=== PATIENT | male | born 1985 | race American Indian/Alaskan Native ===

== ENCOUNTER 2016-09-29 11:37 | Inpatient (IN) | payer OTHER ==
[2016-09-29] MEDS ORDERED: HYDROGEN PEROXIDE ONE (12:53)
[2016-09-29 13:17] LABS: Hematocrit 40.9 % (35.5-45.6); Hemoglobin 13.3 gm/dl (11.8-15.2); Mean Corpuscular HGB Conc 32 % (32-34); Mean Corpuscular Hemoglobin 27 pg (28-32); Mean Corpuscular Volume 83 fl (84-94); Platelet Count 188 K/mm3 (140-440); Red Blood Count 4.93 M/mm3 (3.65-5.03); Red Cell Distribution Width 17.3 % (13.2-15.2)
[2016-09-29 13:23] LABS: Alanine Aminotransferase 43 units/L (7-56); Albumin 2.9 g/dL (3.9-5); Albumin/Globulin Ratio 0.8 %; Alkaline Phosphatase 234 units/L (35-129); Anion Gap 19 mmol/L; Blood Urea Nitrogen 7 mg/dL (9-20); Calcium 8.3 mg/dL (8.4-10.2); Carbon Dioxide 23 mmol/L (22-30); Chloride 92.3 mmol/L (98-107); Glucose 61 mg/dL (75-100); Lipase 208 units/L (13-60); Potassium 3.7 mmol/L (3.6-5.0); Sodium 131 mmol/L (137-145); Total Protein 6.4 g/dL (6.3-8.2)
[2016-09-29 13:29] LABS: Bilirubin,Urine NEG (Negative); Blood,Urine NEG (Negative); Ketones,Urine 80 mg/dL (Negative); Leukocyte Esterase,Urine NEG (Negative); Mucus,Urine 1+ /HPF; Nitrite,Urine NEG (Negative); Urobilinogen,Urine < 2.0 mg/dL (<2.0)
[2016-09-29] MEDS ORDERED: NACL 0.9% 1000 ML 1,000 ML IV ONE (13:35)
[2016-09-29] MEDS ORDERED: MORPHINE IV ONE (13:35)
--- NOTE | 2016-09-29 13:54 | XRay Report ---
Flat and upright abdomen: History: Abdominal pain. Findings: No free intraperitoneal air. No bowel distention or wall thickening. No radiopaque calculus or abnormal calcification. Impression: Essentially negative abdomen.
--- NOTE | 2016-09-29 14:12 | Admit Criteria Form ---
Admission Criteria Documentation: GALLBLADDER OR BILE DUCT INFLAMMATION OR STONE Clinical Indications for Admission to Inpatient Care ( Place 'X' for any and all applicable criteria): Admission is indicated for patients with ANY ONE of the following(1)(2)(3)(4)(5) : [X]I. Acute cholecystitis as indicated by ALL of the following: [X]a) Right upper quadrant pain, mass, or tenderness [ ]b) Systemic signs of inflammation indicated by ANY ONE of the following: [ ]i) Fever [ ]ii) C-reactive protein level greater than 10 mg/L (95 nmol/L) [ ]iii) White blood cell count greater than 10,000/mm3 (10 x109/L) or less than 4000/mm3 (4 x109/L) [X]II. Inpatient admission required rather than observation care (Also use Gallbladder or Bile Duct Inflammation or Stone: Observation Care as appropriate) because of ANY ONE of the following: [ ]a) Common bile duct obstruction diagnosed [ ]b) Vomiting that is severe or persistent []c) Severe pain requiring acute inpatient management [ ]d) Signs of intestinal obstruction or peritonitis [A] [ ]e) Severe electrolyte abnormalities requiring inpatient care [ ]f) Absent bowel sounds with complete ileus(8) [ ]g) Hemodynamic instability [ ]h) High fever or infection requiring inpatient admission as indicated by ANY ONE of the following (9): [ ]1) Appropriate outpatient or observation care antimicrobial Treatment. unavailable, not effective, or not feasible [ ]2) Temperature greater than 104.9 degrees F (40.5 degrees C) (oral) [ ]3) Temperature greater than 103.1 degrees F (39.5 degrees C) (oral) or less than 96.8 degrees F (36 degrees C) (rectal) that does not respond to all emergency treatment measures [ ]4) Documented bacteremia [ ]i) IV fluid to replace significant ongoing losses (greater than 3 L/m2 per day) [ ]j) Percutaneous or open drainage (eg, abscess, biliary tract) procedures [ ]k) Immediate inpatient surgery [ ]l) Other condition, treatment or monitoring requiring inpatient admission [ ]III. Acute cholangitis as indicated by ALL of the following(9)(10): [ ]a) Systemic signs of inflammation indicated by ANY ONE of the following: [ ]i) Fever [ ]ii) C-reactive protein level greater than 10 mg/L (95 nmol /L) [ ]iii) White blood cell count greater than 10,000/mm3 (10 x109/L) or less than 4000/mm3 (4 x109/L) [ ]b) Evidence of common bile duct disease indicated by ANY ONE of the following: [ ]i) Total serum bilirubin level greater than or equal to 2 mg/dL (34 micromoles/L) [ ]ii) Liver function test (alkaline phosphatase (ALP), r- glutamyltransferase (GGT), aspartate aminotransferase (AST), or alanine aminotransferase (ALT)) greater than 1.5 times the upper limit of normal[B] [ ]iii) Hepatobiliary imaging showing biliary dilatation or evidence of etiology (eg, stricture, stone, previously placed stent) Extended stay beyond goal length of stay may be needed for (1)(2)): [ ]a) Bacteremia or Hemodynamic instability [ ]b) Cholecystectomy [ ]c) Other surgical procedure(24) [ ]d) Percutaneous or endoscopic ultrasound-guided cholecystostomy The original [facility] content created by [facility] has been revised. The portions of the content which have been revised are identified through the use of italic text or in bold, and [facility] has neither reviewed nor approved the modified material. All other unmodified content is copyright [facility]. Please see references footnoted in the original [facility] edition 2016 Admission Criteria Met: Yes
[2016-09-29 14:13] LABS: Basophils % (Manual) 0 % (0.0-1.8); Blastocytes % (Manual) 0 %
[2016-09-29 14:14] LABS: Diff Status Complete; RBC Morphology Normal
--- NOTE | 2016-09-29 14:33 | Cat Scan Report ---
CT HEAD WITHOUT CONTRAST INDICATION: Altered mental status. COMPARISON: None similar. FINDINGS: Noncontrast head CT demonstrates symmetric ventricles and sulci without acute or recent infarct, hemorrhage, mass effect or midline shift. No abnormal extra-axial fluid collections. Posterior fossa structures and basilar cisterns appear within normal limits. Symmetric imaged eye globes. Clear paranasal sinuses and mastoid air cells. Intact calvarium. Normal overlying scalp soft tissues. CONCLUSION: No acute intracranial CT abnormality, as described. Thank you for the opportunity to participate in this patient's care.
--- NOTE | 2016-09-29 14:37 | Cat Scan Report ---
CT scan of abdomen and pelvis without IV contrast: History: Abdominal pain. Findings: Airspace opacities right lower lobe suggestive of pneumonitis. No pleural effusion or pericardial effusion. Fatty liver. Thick wall gallbladder with pericholecystic fluid. Normal pancreas. Normal spleen. Normal adrenals and kidneys and bladder. No free intraperitoneal fluid. No evidence of adenopathy. Grossly bowel gas pattern unremarkable. No evidence of appendicitis or diverticulitis. Impression: Thickwalled gallbladder with pericholecystic fluid. Sonographic correlation to rule out cholecystitis. Fatty liver. Airspace opacities right lower lobe suggestive of pneumonitis.
[2016-09-29] MEDS ORDERED: HYDROGEN PEROXIDE TP ONE (14:59)
--- NOTE | 2016-09-29 15:38 | Ultrasound Report ---
Sonogram right upper quadrant: History: Abdominal pain, rule out cholecystitis. Findings: Normal aorta and inferior vena cava. Gallbladder wall thickness 6.7 mm. Pericholecystic fluid. Multiple calculi in gallbladder. Positive Nova sign. No intrahepatic or extrahepatic duct dilatation. Common bile duct 4 mm. Right kidney 10.9 x 5.3 x 5.3 cm. Cortical thickness 1.4 cm. No mass. No hydronephrosis. Pancreas not visualized. Impression: Finding suggestive acute cholecystitis.
--- NOTE | 2016-09-29 15:55 | Emergency Department Report ---
HPI - General Chief Complaint: Abdominal Pain Time Seen by Provider: 09/29/16 12:00 - HPI HPI: This is a 31-year-old male who presents emergency Department with complaint of a 3 to four-day history of upper abdominal pain, nausea and vomiting. He has a history of asthma and HIV. The patient says he has been off of his HIV medications for about a week or so. He has not taken anything for pain or his symptoms prior to presentation. No recent travel or sick contacts at home. He denies any past surgical history. He denies any tobacco abuse, illicit drug use or any alcohol abuse. He denies any fever, chest pain, shortness of breath , dysuria, discharge. ED Past Medical Hx - Past Medical History Hx Asthma: Yes Hx HIV: Yes - Social History Smoking Status: Never Smoker Substance Use Type: Alcohol - Medications Home Medications: Home Medications Medication Instructions Recorded Confirmed Last Taken Type Cetirizine HCl [Allergy Relief] 10 mg PO DAILY #30 tablet 01/25/14 Unknown Rx ED Review of Systems ROS: Stated complaint: N/V / ABD PAIN Other details as noted in HPI Comment: All other systems reviewed and negative Constitutional: denies: chills, fever Eyes: denies: eye pain, eye discharge, vision change ENT: denies: ear pain, throat pain Respiratory: denies: cough, shortness of breath, wheezing Cardiovascular: denies: chest pain, palpitations Gastrointestinal: abdominal pain, nausea, vomiting Genitourinary: denies: urgency, dysuria Musculoskeletal: denies: back pain, joint swelling, arthralgia Skin: denies: rash, lesions Neurological: denies: headache, weakness, paresthesias Physical Exam - Physical Exam Vital Signs: Vital Signs 09/29/16 11:49 Pulse Rate 109 H Respiratory 16 Rate Blood Pressure 111/81 O2 Sat by Pulse 100 Oximetry Physical Exam: GENERAL: The patient is well-developed well-nourished. HEENT: Normocephalic. Atraumatic. Extraocular motions are intact. Patient has moist mucous membranes. Pupils equal reactive to light bilaterally. NECK: Supple. Trachea is midline. CHEST/LUNGS: Clear to auscultation. There is no respiratory distress noted. HEART/CARDIOVASCULAR: Regular. There is no tachycardia. There is no gallop rub or murmur. ABDOMEN: Abdomen is soft. There is tenderness palpation to the right upper quadrant epigastrium. There is mild guarding but no rebound tenderness. Patient has normal bowel sounds. There is no abdominal distention. SKIN: Skin is warm and dry. NEURO: The patient is awake, alert. The patient is cooperative. The patient has no focal neurologic deficits. The patient has normal speech. MUSCULOSKELETAL: There is no tenderness or deformity. There is no limitation range of motion. There is no evidence of acute injury. ED Course Vital Signs 09/29/16 11:49 Pulse Rate 109 H Respiratory 16 Rate Blood Pressure 111/81 O2 Sat by Pulse 100 Oximetry - Consultations Consultation #1: I spoke to the general surgeon on-call, Dr. Way, who has recommended the patient be placed on Levaquin and admitted to the hospitalist service and he will consult on the patient as he says he will most likely not take the patient to the OR for a few days. 09/29/16 16:02 ED Medical Decision Making - Lab Data Result diagrams: 09/29/16 11:53 09/29/16 11:53 - Radiology Data Radiology results: report reviewed, image reviewed interpreted by me: Abdominal x-ray shows some nonspecific nonobstructive bowel gas. CT of the head does not show any acute process including no hemorrhage, mass, shift, diffuse edema or skull fracture. CT of the abdomen and pelvis without contrast shows thick-walled gallbladder with pericholecystic fluid. Sonographic correlation to rule out cholecystitis. Fatty liver. Airspace opacities right lower lobe suggestive of pneumonitis. Right upper quadrant ultrasound shows findings suggestive of acute cholecystitis. Gall bladder wall thickness 6.7 mm. Pericholecystic fluid. Multiple calculi in the gallbladder. Positive Nova sign. No intrahepatic or extra ductal dilation. Common bile duct 4 mm. - Medical Decision Making 31-year-old male presents with a few days of abdominal pain, nausea, vomiting. Abdominal x-ray is unremarkable. Labs show elevation in lipase, AST, alkaline phosphatase. CT of the abdomen and pelvis was done that showed concern for cholecystitis but recommended ultrasound. Ultrasound confirms acute cholecystitis. Spoke with general surgery who is aware and asked to be placed as consultation and recommends IV antibiotics. The patient has been accepted for admission by the hospitalist, Dr. Hamm. - Differential Diagnosis cholecystitis, pancreatitis, colitis, diverticulitis Critical Care Time: No Critical care attestation.: If time is entered above; I have spent that time in minutes in the direct care of this critically ill patient, excluding procedure time. ED Disposition Clinical Impression: Cholecystitis Abdominal pain Qualifiers: Abdominal location: upper abdomen, unspecified Qualified Code(s): R10.10 - Upper abdominal pain, unspecified Nausea & vomiting Qualifiers: Vomiting type: unspecified Vomiting Intractability: non-intractable Qualified Code(s): R11.2 - Nausea with vomiting, unspecified Disposition: 09 OP ADMIT IP TO THIS HOSP Is pt being admited?: Yes Condition: Stable Referrals: PRIMARY CARE,MD [Primary Care Provider] - 3-5 Days Time of Disposition: 16:02
[2016-09-29] MEDS ORDERED: LEVAQUIN 750MG/150ML 750 MG/150 ML BAG IV ONE (15:58)
[2016-09-29] MEDS ORDERED: DULCOLAX PR PRN (16:43)
[2016-09-29] MEDS ORDERED: MORPHINE IV PRN (16:43)
[2016-09-29] MEDS ORDERED: ZOFRAN IV PRN (16:43)
[2016-09-29] MEDS ORDERED: D5NS 1,000 ML IV SCH (17:00)
--- NOTE | 2016-09-29 17:49 | History and Physical Report ---
History of Present Illness Date of examination: 09/29/16 Chief complaint: Abdominal pain vomiting and diarrhea for 1 week History of present illness: This is a 31-year-old male who presents emergency Department with complaints history of upper abdominal pain, nausea and vomiting and diarrhea for the past 1 week. He also states that he has not been feeling well for the past 2 months and has had a weight loss of about 60 pounds in the past 6 months. He has a history of asthma and HIV. The patient says he has been off of his HIV medications and states that the medications have been impounded by his aunt. He has not taken anything for pain or his symptoms prior to presentation. No recent travel or sick contacts at home. He denies any past surgical history. He denies any tobacco abuse, illicit drug use or any alcohol abuse. He denies any fever, chest pain, shortness of breath, dysuria, discharge. Upon further workup patient was diagnosed with acute cholecystitis and right lower lobe pneumonitis and he is being admitted for further management Past History Past Medical History: HIV/AIDS Past Surgical History: No surgical history Social history: no significant social history Family history: no significant family history Medications and Allergies Allergies Allergy/AdvReac Type Severity Reaction Status Date / Time No Known Allergies Allergy Verified 01/25/14 20:34 Home Medications Medication Instructions Recorded Confirmed Last Taken Type No Known Home Medications [No 09/29/16 09/29/16 Unknown History Reported Home Medications] Active Meds: Active Medications Bisacodyl (Dulcolax) 10 mg [place] QDAY PRN PRN Reason: Constipation unrelieved by MOM Heparin Sodium (Porcine) (Heparin) 5,000 unit SUB-Q Q8HR JOSE ANTONIO Dextrose/Sodium Chloride (D5ns) 1,000 mls @ 100 mls/hr IV DIRECT JOSE ANTONIO Levofloxacin/Dextrose (Levaquin 750mg/150ml) 750 mg in 150 mls @ 100 mls/hr IV Q24HR JOSE ANTONIO PRN Reason: Protocol Morphine Sulfate (Morphine) 2 mg IV Q4H PRN PRN Reason: Pain, Moderate (4-6) Ondansetron HCl (Zofran) 4 mg IV Q8H PRN PRN Reason: N/V unrelieved by Reglan Review of Systems All systems: negative (12 point review of systems is negative except as stated above in the history of present illness) Exam - Constitutional Vitals: Temp Pulse Resp BP Pulse Ox 104 H 20 100/67 96 09/29/16 16:20 09/29/16 16:32 09/29/16 16:20 09/29/16 16:32 General appearance: Present: no acute distress - EENT Eyes: Present: PERRL, EOM intact ENT: hearing intact, clear oral mucosa, no thrush - Neck Neck: Present: supple, normal ROM. Absent: masses or JVD - Respiratory Respiratory effort: normal Respiratory: bilateral: CTA - Cardiovascular Rhythm: regular Heart Sounds: Present: S1 & S2 - Extremities Extremities: No edema - Abdominal General gastrointestinal: Present: soft, tender (moderate tenderness in the right upper quadrant and right mid abdomen), non-distended. Absent: hepatomegaly, splenomegaly Male genitourinary: Present: deferred - Rectal Rectal Exam: deferred - Integumentary Integumentary: Present: erythema (there is perioral and nivia nasal facial erythema) - Musculoskeletal Musculoskeletal: strength equal bilaterally - Psychiatric Psychiatric: appropriate mood/affect - Neurologic Neurologic: no focal deficits, moves all extremities Results - Labs CBC & Chem 7: 09/29/16 11:53 09/29/16 11:53 Labs: Abnormal lab results 09/29/16 09/29/16 Range/Units 11:53 11:53 WBC 2.0 L (4.5-11.0) K/mm3 MCV 83 L (84-94) fl MCH 27 L (28-32) pg RDW 17.3 H (13.2-15.2) % Seg Neuts % (Manual) 74.0 H (40.0-70.0) % Lymphocytes % (Manual) 7.0 L (13.4-35.0) % Seg Neutrophils # Man 1.5 L (1.8-7.7) K/mm3 Lymphocytes # (Manual) 0.1 L (1.2-5.4) K/mm3 Sodium 131 L (137-145) mmol/L Chloride 92.3 L (98-107) mmol/L BUN 7 L (9-20) mg/dL Creatinine 0.4 L (0.8-1.5) mg/dL Glucose 61 L (75-100) mg/dL Calcium 8.3 L (8.4-10.2) mg/dL AST 133 H (5-40) units/L Alkaline Phosphatase 234 H (35-129) units/L Albumin 2.9 L (3.9-5) g/dL Lipase 208 H (13-60) units/L Assessment and Plan - Patient Problems (1) Acute cholecystitis Current Visit: Yes Status: Acute Plan to address problem: Keep the patient nothing by mouth ED physician contacted Dr. Way At this time patient is refusing surgery Pain control Intravenous antibiotics IV fluids (2) Right lower lobe pneumonia Current Visit: Yes Status: Acute Qualifiers: Pneumonia type: P Aspiration pneumonia type: A Plan to address problem: Blood cultures Intravenous antibiotics Oxygen supplement IV hydration (3) HIV (human immunodeficiency virus infection) Current Visit: Yes Status: Acute Plan to address problem: His home medication list is not available He was told to contact his family about the medications Patient however states that his aunt has stopped all his medications (4) Leukopenia Current Visit: Yes Status: Acute Qualifiers: Leukopenia type: L Neutropenia type: N Plan to address problem: Most likely HIV related (5) Hyponatremia Current Visit: Yes Status: Acute Plan to address problem: Continue IV fluids and monitor serum electrolytes Check urine spot electrolytes Total time spent 40 minutes
--- NOTE | 2016-09-29 21:41 | Progress Note ---
Assessment and Plan Full consult dictated. 31 y/o male +HIV & pneumonitis. c/o RUQ abd pain. CT & US consistent with acute cholecystitis. states feeling better now. Abd soft. mild RUQ tenderness low wbc. high lipase imp immunocompromised HIV pt (advertently not taking meds, also possibly homeless "staying in hotel" r/o acute cholecyistitis. rec. keep NPO IV Levaquin ID eval to re-start HIV meds and boost immune system. hold sub q Heparin in case we need to proceed with emergency surg would prefer to attempt IV antibiotics and see if pt clinically improves. then we could proceed with semi-elective cholecystectomy in near future once acute inflammation and possible pancreatitis subsides. will follow. Selected Entries 09/29/16 20:00 Pulse Rate 103 H Respiratory 17 Rate Blood Pressure 100/67 Laboratory Tests 09/29/16 09/29/16 11:53 11:53 WBC 2.0 L Hgb 13.3 Hct 40.9 Plt Count 188 Sodium 131 L Potassium 3.7 Chloride 92.3 L Carbon Dioxide 23 BUN 7 L Creatinine 0.4 L Glucose 61 L Total Bilirubin 0.40 AST 133 H ALT 43 Alkaline Phosphatase 234 H Lipase 208 H Objective Vital Signs - 12hr 09/29/16 09/29/16 09/29/16 16:50 17:00 17:10 Pulse Rate 102 H 99 H 102 H Respiratory 12 19 21 Rate Blood Pressure 100/67 100/67 100/67 O2 Sat by Pulse 71 L 100 100 Oximetry 09/29/16 09/29/16 09/29/16 17:20 17:30 17:40 Pulse Rate 103 H 108 H 109 H Respiratory 16 25 H 16 Rate Blood Pressure 100/67 100/67 100/67 O2 Sat by Pulse 100 86 100 Oximetry 09/29/16 09/29/16 09/29/16 17:50 18:00 19:00 Pulse Rate 108 H 108 H 104 H Respiratory 21 29 H 25 H Rate Blood Pressure 100/67 100/67 100/67 O2 Sat by Pulse 98 100 100 Oximetry 09/29/16 20:00 Pulse Rate 103 H Respiratory 17 Rate Blood Pressure 100/67 O2 Sat by Pulse 98 Oximetry - Labs 09/29/16 11:53 09/29/16 11:53
[2016-09-29] MEDS ORDERED: HEPARIN SUB-Q SCH (22:00)
--- NOTE | 2016-09-30 05:24 | Consultation ---
REASON FOR CONSULTATION: 1. Rule out acute cholecystitis. 2. HIV. HISTORY OF PRESENT ILLNESS: The patient is a 31-year-old gentleman, a known HIV patient, who has been complaining of coughing and right upper quadrant abdominal pain for \\"a couple of months now.\\" The patient was seen at [facility] doctors who gave him some medication, but it is not clear whether the patient is currently taking these medications. PAST MEDICAL HISTORY: HIV and asthma. PAST SURGICAL HISTORY: Negative. ALLERGIES: ALLERGIC TO TYLENOL WHICH CAUSES HIVES. MEDICATIONS: Include HIV meds. FAMILY HISTORY: Lung cancer and heart disease. SOCIAL HISTORY: Denies any smoking or drinking. REVIEW OF SYSTEMS: Noncontributory. PHYSICAL EXAMINATION: GENERAL: At this time reveals the patient to be awake, alert, cooperative, mild discomfort, but no acute distress. VITAL SIGNS: Show him to have a blood pressure of 100/67, pulse of 103, respirations of 17. Temperature is not recorded on the chart at present. HEENT: Examination of the sclerae show to be nonicteric. ABDOMEN: Flat and soft. There is mild right upper quadrant tenderness, but no guarding or rebound at this time. The patient states he is \\"actually feeling less pain at present.\\" Bowel sounds are present. LABORATORY DATA: Includes a CBC which shows a low white count of 2 consistent with the patient's history of HIV. H and H of 13 3 and 40.9. Platelet count is 188. Electrolytes show a low sodium of 131, a low chloride of 92. BUN is 7, creatinine is 0.4. LFTs show total bilirubin of 0.4, AST is 133, ALT 43, alkaline phosphatase is slightly elevated at 234. Lipase is also elevated at 208. CT of the abdomen has been performed, which shows a thickened wall gallbladder with pericholecystic fluid and a gallbladder ultrasound is recommended to rule out cholecystitis. Subsequent gallbladder ultrasound was performed and it confirmed findings suggestive of acute cholecystitis. A pneumonitis is also noted on a CT. IMPRESSION: At this time is that of a 31-year-old gentleman with known human immunodeficiency virus, rule out acute cholecystitis, also rule out pneumonitis, and rule out immunocompromise secondary to human immunodeficiency virus. RECOMMENDATIONS: Would keep the patient n.p.o., start IV Levaquin as you have done. Also, we need ID evaluation, so we can restart the patient on appropriate HIV medications and attempt to boost his immune system. Also, would hold subcutaneous heparin in case we need to proceed with a semi-urgent surgery if the patient clinically does not improve. I would prefer, however, to attempt to continue current IV antibiotic therapy and see if the patient clinically improves. If he does, then we could proceed with a semi-elective cholecystectomy in the near future once his acute inflammatory process and possible pancreatitis subsides. This also will give us an opportunity to improve the patient's immunologic situation. We will follow closely with you. Also, we will reorder a followup CBC, CMP, amylase and lipase in the morning. JOB# [id number] CHRIS/YAYA
[2016-09-30 08:04] LABS: Hematocrit 35.9 % (35.5-45.6); Hemoglobin 11.9 gm/dl (11.8-15.2); Mean Corpuscular HGB Conc 33 % (32-34); Mean Corpuscular Hemoglobin 27 pg (28-32); Mean Corpuscular Volume 82 fl (84-94); Platelet Count 173 K/mm3 (140-440); Red Cell Distribution Width 16.7 % (13.2-15.2)
[2016-09-30 08:19] LABS: White Blood Count 1.9 K/mm3 (4.5-11.0)
[2016-09-30 08:23] LABS: Amylase 110 units/L (27-131); Anion Gap 18 mmol/L; Blood Urea Nitrogen 6 mg/dL (9-20); Calcium 7.8 mg/dL (8.4-10.2); Carbon Dioxide 20 mmol/L (22-30); Chloride 98.8 mmol/L (98-107); Glucose 73 mg/dL (75-100); Lipase 179 units/L (13-60); Potassium 4.1 mmol/L (3.6-5.0); Sodium 133 mmol/L (137-145)
[2016-09-30 08:28] LABS: Eosinophils % (Auto) 3.7 % (0.0-4.3)
[2016-09-30 09:32] LABS: Basophils % (Manual) 0 % (0.0-1.8); Blastocytes % (Manual) 0 %; Eosinophils % (Manual) 0 % (0.0-4.3); Polychromasia Few
[2016-09-30 09:33] LABS: Anisocytosis Few; Diff Status Complete; Ovalocytes Few
[2016-09-30] MEDS: LEVAQUIN 750MG/150ML 750 MG/150 ML BAG IV SCH (10:30)
--- NOTE | 2016-09-30 11:15 | Progress Note ---
Assessment and Plan - Patient Problems (1) Acute cholecystitis Current Visit: Yes Status: Acute Plan to address problem: Continue nothing by mouth Continue IV antibiotic At this time patient is refusing surgery He continues to have interval cholecystectomy later (2) Right lower lobe pneumonia Current Visit: Yes Status: Acute Qualifiers: Pneumonia type: P Aspiration pneumonia type: A Plan to address problem: Continue IV antibiotic with Levaquin (3) HIV (human immunodeficiency virus infection) Current Visit: Yes Status: Acute Plan to address problem: Patient is not on any anti-HIV medications and he does not know what he takes Status with nursing staff will try to contact patient's aunt who apparently has told the patient to stop his HIV medications (4) Leukopenia Current Visit: Yes Status: Acute Qualifiers: Leukopenia type: L Neutropenia type: N Plan to address problem: Secondary to immunocompromised compromised from HIV infection We will monitor (5) Hyponatremia Current Visit: Yes Status: Acute Plan to address problem: Improving Monitor electrolytes Subjective Date of service: 09/30/16 Interval history: Patient is resting Alert No apparent distress States pain is okay But he is not allowing me to do a proper physical exam Vital signs are stable and is afebrile Gen. surgery consult note reviewed and appreciated Objective - Constitutional Vitals: Vital Signs - 12hr 09/30/16 08:00 Temperature 98.9 F Pulse Rate [ 78 Left Radial] Respiratory 16 Rate Blood Pressure 108/70 [Left Arm] O2 Sat by Pulse 98 Oximetry General appearance: Present: no acute distress - EENT Eyes: PERRL, EOM intact ENT: hearing intact, clear oral mucosa - Neck Neck: supple, normal ROM, no masses or JVD - Respiratory Respiratory effort: normal Respiratory: bilateral: CTA - Cardiovascular Rhythm: regular Heart Sounds: Present: S1 & S2 Extremities: No edema - Gastrointestinal General gastrointestinal: Present: soft, tender (in the right upper quadrant). Absent: distended, rigid Rectal Exam: deferred - Integumentary Integumentary: clear - Neurologic Neurologic: no focal deficits - Labs CBC & Chem 7: 09/30/16 07:23 09/30/16 07:23 Labs: Abnormal lab results 09/30/16 09/30/16 Range/Units 07:23 07:23 WBC 1.9 L* (4.5-11.0) K/mm3 MCV 82 L (84-94) fl MCH 27 L (28-32) pg RDW 16.7 H (13.2-15.2) % [place] % (Auto) 11.5 H (0.0-7.3) % Seg Neuts % (Manual) 77.0 H (40.0-70.0) % Lymphocytes % (Manual) 13.0 L (13.4-35.0) % Seg Neutrophils # 1.1 L (1.8-7.7) K/mm3 Seg Neutrophils # Man 1.5 L (1.8-7.7) K/mm3 Lymphocytes # (Manual) 0.2 L (1.2-5.4) K/mm3 Sodium 133 L (137-145) mmol/L Carbon Dioxide 20 L (22-30) mmol/L BUN 6 L (9-20) mg/dL Creatinine 0.4 L (0.8-1.5) mg/dL Glucose 73 L (75-100) mg/dL Calcium 7.8 L (8.4-10.2) mg/dL Lipase 179 H (13-60) units/L
--- NOTE | 2016-09-30 12:29 | Progress Note ---
Assessment and Plan Pt states feeling better. less pain. no nausea Abd soft 1.9 wbc noted. awaiting ID eval and placement on appropriate HIV medication pulm eval r/o RLL pneumnia continue present care Selected Entries 09/30/16 08:00 Temperature 98.9 F Pulse Rate [ 78 Left Radial] Respiratory 16 Rate Blood Pressure 108/70 [Left Arm] Laboratory Tests 09/29/16 09/30/16 09/30/16 11:53 07:23 07:23 WBC 2.0 L 1.9 L* Hgb 11.9 Hct 35.9 Sodium 133 L Potassium 4.1 Chloride 98.8 Carbon Dioxide 20 L BUN 6 L Creatinine 0.4 L Amylase 110 Lipase 179 H Objective Vital Signs - 12hr 09/30/16 08:00 Temperature 98.9 F Pulse Rate [ 78 Left Radial] Respiratory 16 Rate Blood Pressure 108/70 [Left Arm] O2 Sat by Pulse 98 Oximetry - Labs 09/30/16 07:23 09/30/16 07:23 Diabetes panel 09/30/16 Range/Units 07:23 Sodium 133 L (137-145) mmol/L Potassium 4.1 (3.6-5.0) mmol/L Chloride 98.8 (98-107) mmol/L Carbon Dioxide 20 L (22-30) mmol/L BUN 6 L (9-20) mg/dL Creatinine 0.4 L (0.8-1.5) mg/dL Glucose 73 L (75-100) mg/dL Calcium 7.8 L (8.4-10.2) mg/dL Thyroid panel 09/30/16 Range/Units 07:23 TSH 1.600 (0.270-4.200) mlU/mL Calcium panel 09/30/16 Range/Units 07:23 Calcium 7.8 L (8.4-10.2) mg/dL Pituitary panel 09/30/16 09/30/16 Range/Units 07:23 07:23 Sodium 133 L (137-145) mmol/L Potassium 4.1 (3.6-5.0) mmol/L Chloride 98.8 (98-107) mmol/L Carbon Dioxide 20 L (22-30) mmol/L BUN 6 L (9-20) mg/dL Creatinine 0.4 L (0.8-1.5) mg/dL Glucose 73 L (75-100) mg/dL Calcium 7.8 L (8.4-10.2) mg/dL TSH 1.600 (0.270-4.200) mlU/mL Adrenal panel 09/30/16 Range/Units 07:23 Sodium 133 L (137-145) mmol/L Potassium 4.1 (3.6-5.0) mmol/L Chloride 98.8 (98-107) mmol/L Carbon Dioxide 20 L (22-30) mmol/L BUN 6 L (9-20) mg/dL Creatinine 0.4 L (0.8-1.5) mg/dL Glucose 73 L (75-100) mg/dL Calcium 7.8 L (8.4-10.2) mg/dL
[2016-10-01] MEDS: LEVAQUIN 750MG/150ML 750 MG/150 ML BAG IV SCH (09:36)
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
[2016-10-01 10:32] LABS: Hematocrit 38.4 % (35.5-45.6); Hemoglobin 12.7 gm/dl (11.8-15.2); Mean Corpuscular HGB Conc 33 % (32-34); Mean Corpuscular Hemoglobin 27 pg (28-32); Mean Corpuscular Volume 82 fl (84-94); Platelet Count 141 K/mm3 (140-440); Red Blood Count 4.68 M/mm3 (3.65-5.03); Red Cell Distribution Width 17.4 % (13.2-15.2)
[2016-10-01 10:37] LABS: Alanine Aminotransferase 33 units/L (7-56); Albumin 2.8 g/dL (3.9-5); Alkaline Phosphatase 203 units/L (35-129); Anion Gap 21 mmol/L; Blood Urea Nitrogen 3 mg/dL (9-20); Calcium 8.2 mg/dL (8.4-10.2); Carbon Dioxide 20 mmol/L (22-30); Chloride 100.9 mmol/L (98-107); Glucose 78 mg/dL (75-100); Potassium 4.2 mmol/L (3.6-5.0); Sodium 138 mmol/L (137-145); Total Protein 5.6 g/dL (6.3-8.2)
[2016-10-01 10:44] LABS: White Blood Count 1.7 K/mm3 (4.5-11.0)
[2016-10-01] MEDS: PULMICORT IH SCH ×2 (11:20→21:35)
[2016-10-01] MEDS: BROVANA NEBU IH SCH ×2 (11:21→21:35)
--- NOTE | 2016-10-01 11:26 | XRay Report ---
ROUTINE CHEST, TWO VIEWS: HISTORY: Shortness of breath, right lower lobe pneumonia. There is a very subtle area of infiltration in the lateral segment of the right lower lobe. This is better appreciated on the CT abdomen and pelvis performed 09/29/16. This probably represents a small or early pneumonia. The remainder of the lungs are clear. Normal heart and mediastinal structures. Normal bony thorax. IMPRESSION: Very subtle right lower lobe infiltrate.
--- NOTE | 2016-10-01 12:58 | Consultation ---
History of Present Illness - Reason for Consult Consult date: 10/01/16 HIV Infection - History of Present Illness Mr. Claire is a 31-year-old gentleman who is admitted for management of abdominal pain due to acute cholecystitis. He is noted to have a history of HIV infection. He says he was diagnosed earlier in 2017 at [facility] during a hospitalization for Pneumocystis pneumonia. He, also, was treated for oral candidiasis at the time. He says his CD4=17. He had follow-up arranged at [facility] and was initiated on Genvoya. He explains that his living arrangements and limited transportation precluded him from complying with his prescribed treatment. As such, he has not taken any meds for several weeks. ID consultation is requested for further recommendations on managing the patient's HIV infection. Past History Past Medical History: HIV/AIDS, other (asthma; Pneumocystis pneumonia; thrush) Past Surgical History: No surgical history Social history: no significant social history, single (MSM). denies: lives with family (mother is ; father unknown) Family history: no significant family history Medications and Allergies Allergies Allergy/AdvReac Type Severity Reaction Status Date / Time No Known Allergies Allergy Verified 01/25/14 20:34 Home Medications Medication Instructions Recorded Confirmed Last Taken Type No Known Home Medications [No 09/29/16 09/29/16 Unknown History Reported Home Medications] Active Meds: Active Medications Arformoterol Tartrate (Brovana Nebu) 15 mcg IH Q12HRT [facility] Last Admin: 10/01/16 11:21 Dose: 15 mcg Bisacodyl (Dulcolax) 10 mg [place] QDAY PRN PRN Reason: Constipation unrelieved by MOM Budesonide (Pulmicort) 0.25 mg IH Q12HRT [facility] Last Admin: 10/01/16 11:20 Dose: 0.25 mg Dextrose/Sodium Chloride (D5ns) 1,000 mls @ 100 mls/hr IV DIRECT [facility] Last Admin: 09/29/16 18:39 Dose: 100 mls/hr Levofloxacin/Dextrose (Levaquin 750mg/150ml) 750 mg in 150 mls @ 100 mls/hr IV Q24HR JOSE ANTONIO PRN Reason: Protocol Last Admin: 10/01/16 09:36 Dose: 100 mls/hr Morphine Sulfate (Morphine) 2 mg IV Q4H PRN PRN Reason: Pain, Moderate (4-6) Ondansetron HCl (Zofran) 4 mg IV Q8H PRN PRN Reason: N/V unrelieved by Reglan Review of Systems All systems: negative Constitutional: weight loss, fatigue, no fever, no chills, no sweats Cardiovascular: shortness of breath, no palpitations Respiratory: no cough, no shortness of breath Gastrointestinal: abdominal pain, diarrhea, no jaundice Genitourinary Male: no dysuria, no hematuria Integumentary: rash (facial), no pruritis Neurological: memory loss Hematologic/Lymphatic: no lymphadenopathy Physical Examination - Physical Exam Narrative exam: thin, chronically ill-appearing young man - Constitutional Vitals: Vital Signs Temp Pulse Resp BP Pulse Ox 97.8 F 107 H 20 92/54 96 10/01/16 08:15 10/01/16 11:32 10/01/16 11:32 10/01/16 08:15 10/01/16 08:15 Temperature -Last 24 Hours Temperature 97.8 F Temperature 97.7 F Temperature 99.1 F General appearance: Present: no acute distress - EENT Eyes: Absent: scleral icterus, conjunctival injection ENT: no thrush - Neck Neck: Present: supple, normal ROM. Absent: cervical LAD - Respiratory Respiratory effort: normal Respiratory: bilateral: CTA, negative: wheezing - Cardiovascular Rhythm: regular Heart Sounds: Present: S1 & S2 - Extremities Extremities: No edema - Abdominal General gastrointestinal: Present: soft, tender, non-distended Localized gastrointestinal: tender: RUQ - Integumentary Integumentary: Present: rash (seborrheic facial rash). Absent: jaundice - Psychiatric Psychiatric: appropriate mood/affect - Neurologic Neurologic: no focal deficits, moves all extremities Results - Labs CBC & Chem 7: 10/01/16 10:00 10/01/16 10:00 Labs: Abnormal lab results 10/01/16 10/01/16 Range/Units 10:00 10:00 WBC 1.7 L* (4.5-11.0) K/mm3 MCV 82 L (84-94) fl MCH 27 L (28-32) pg RDW 17.4 H (13.2-15.2) % Carbon Dioxide 20 L (22-30) mmol/L BUN 3 L (9-20) mg/dL Creatinine 0.4 L (0.8-1.5) mg/dL Calcium 8.2 L (8.4-10.2) mg/dL AST 86 H (5-40) units/L Alkaline Phosphatase 203 H (35-129) units/L Total Protein 5.6 L (6.3-8.2) g/dL Albumin 2.8 L (3.9-5) g/dL Microbiology 09/29/16 17:23 Peripheral/Venous Blood Culture - Preliminary NO GROWTH AFTER 24 HOURS 09/29/16 16:13 Peripheral/Venous Blood Culture - Preliminary NO GROWTH AFTER 24 HOURS - Imaging and Cardiology Chest x-ray: report reviewed (very subtle RLL infiltrate) Abdominal x-ray: report reviewed CT scan - abdomen: report reviewed (findings consistent with acute cholecystitis ) CT Scan - head: report reviewed (no acute abnormality) Assessment and Plan - Patient Problems (1) AIDS (acquired immunodeficiency syndrome), CD4 <=200 Current Visit: Yes Status: Acute Plan to address problem: 1. Patient has an AIDS-qualifying history with CD4=17 and history of OIs. 2. Will check CD4 to re-establish a baseline, also screen for evidence of co- infection with HBV, HCV and cryptococcus, especially prior to resuming ARVs, likely Genvoya. 3. Will start Bactrim for PCP prophylaxis and check AFB blood culture. 4. Patient is a resident of [facility] and he should follow-up at [facility] for continued HIV management. Case management assistance is recommended to ensure that patient has appropriate transportation/housing to maintain appointments at [place]. (2) Seborrhea Current Visit: Yes Status: Acute Plan to address problem: 1. Topical steroid cream to face. (3) Acute cholecystitis Current Visit: Yes Status: Acute Plan to address problem: Management per primary MD and surgeon.
--- NOTE | 2016-10-01 15:22 | Progress Note ---
Assessment and Plan Assessment and plan: HIV AIDS Right lower lobe pneumonia Seborrhea Malnutrition Medication noncompliance Leukopenia Cholecystitis - Patient was started on ARV at [facility] but patient is noncompliant - Patient didn't have adequate family support - Patient is on IV antibiotics, and PCP prophylaxis - Cholecystitis patient refused surgery, treated with IV antibiotics, started on clear liquid diet - Patient is on steroid cream - We'll consult dietary for malnutrition - ID consult appreciated - Surgery consult appreciated Discharge planning issue - Patient needs placement, and arrangement to access his medications History Interval history: Patient was seen and evaluated this morning, patient is complaining abdominal pain. Patient denied nausea or vomiting. Hospitalist Physical - Physical exam Narrative exam: Not in cardiopulmonary distress. The patient is emaciated. Vital signs as documented. Head exam is unremarkable. No scleral icterus . Neck is without jugular venous distension, thyromegaly, or carotid bruits. Lungs are clear to auscultation. Cardiac exam reveals regular rate and Rhythm. First and second heart sounds normal. No murmurs, rubs or gallops. Abdominal exam reveals normal bowel sounds, no masses, no organomegaly and no aortic enlargement. Extremities are nonedematous and both femoral and pedal pulses are normal. ASSOCIATE PUBLISHER: Alert and oriented 3. No focal weakness. - Constitutional Vitals: Temp Pulse Resp BP Pulse Ox 97.8 F 107 H 20 92/54 96 10/01/16 08:15 10/01/16 11:32 10/01/16 11:32 10/01/16 08:15 10/01/16 08:15 General appearance: Present: no acute distress Results - Labs CBC & Chem 7: 10/01/16 10:00 10/01/16 10:00 Labs: Laboratory Last Values WBC 1.7 K/mm3 (4.5-11.0) L* 10/01/16 10:00 RBC 4.68 M/mm3 (3.65-5.03) 10/01/16 10:00 Hgb 12.7 gm/dl (11.8-15.2) 10/01/16 10:00 Hct 38.4 % (35.5-45.6) 10/01/16 10:00 MCV 82 fl (84-94) L 10/01/16 10:00 MCH 27 pg (28-32) L 10/01/16 10:00 MCHC 33 % (32-34) 10/01/16 10:00 RDW 17.4 % (13.2-15.2) H 10/01/16 10:00 Plt Count 141 K/mm3 (140-440) 10/01/16 10:00 [place] % (Auto) 11.5 % (0.0-7.3) H 09/30/16 07:23 Eos % (Auto) 3.7 % (0.0-4.3) 09/30/16 07:23 [place] # 0.2 K/mm3 (0.0-0.8) 09/30/16 07:23 Eos # 0.1 K/mm3 (0.0-0.4) 09/30/16 07:23 Baso # 0.0 K/mm3 (0.0-0.1) 09/30/16 07:23 Add Manual Diff Complete 09/30/16 07:23 Total Counted 100 09/30/16 07:23 Seg Neutrophils % 59.2 % (40.0-70.0) 09/30/16 07:23 Seg Neuts % (Manual) 77.0 % (40.0-70.0) H 09/30/16 07:23 Band Neutrophils % 5.0 % 09/30/16 07:23 Lymphocytes % (Manual) 13.0 % (13.4-35.0) L 09/30/16 07:23 Reactive Lymphs % (Man) 0 % 09/30/16 07:23 Monocytes % (Manual) 5.0 % (0.0-7.3) 09/30/16 07:23 Eosinophils % (Manual) 0 % (0.0-4.3) 09/30/16 07:23 Basophils % (Manual) 0 % (0.0-1.8) 09/30/16 07:23 Metamyelocytes % 0 % 09/30/16 07:23 Myelocytes % 0 % 09/30/16 07:23 Promyelocytes % 0 % 09/30/16 07:23 Blast Cells % 0 % 09/30/16 07:23 Nucleated RBC % Not Reportable 09/30/16 07:23 Seg Neutrophils # 1.1 K/mm3 (1.8-7.7) L 09/30/16 07:23 Seg Neutrophils # Man 1.5 K/mm3 (1.8-7.7) L 09/30/16 07:23 Band Neutrophils # 0.1 K/mm3 09/30/16 07:23 Lymphocytes # (Manual) 0.2 K/mm3 (1.2-5.4) L 09/30/16 07:23 Abs React Lymphs (Man) 0.0 K/mm3 09/30/16 07:23 Monocytes # (Manual) 0.1 K/mm3 (0.0-0.8) 09/30/16 07:23 Eosinophils # (Manual) 0.0 K/mm3 (0.0-0.4) 09/30/16 07:23 Basophils # (Manual) 0.0 K/mm3 (0.0-0.1) 09/30/16 07:23 Metamyelocytes # 0.0 K/mm3 09/30/16 07:23 Myelocytes # 0.0 K/mm3 09/30/16 07:23 Promyelocytes # 0.0 K/mm3 09/30/16 07:23 Blast Cells # 0.0 K/mm3 09/30/16 07:23 WBC Morphology Not Reportable 09/30/16 07:23 Hypersegmented Neuts Not Reportable 09/30/16 07:23 Hyposegmented Neuts Not Reportable 09/30/16 07:23 Hypogranular Neuts Not Reportable 09/30/16 07:23 Smudge Cells Not Reportable 09/30/16 07:23 Toxic Granulation Not Reportable 09/30/16 07:23 Toxic Vacuolation Not Reportable 09/30/16 07:23 Dohle Bodies Not Reportable 09/30/16 07:23 Pelger-Huet Anomaly Not Reportable 09/30/16 07:23 Dina Rods Not Reportable 09/30/16 07:23 Platelet Estimate Appears normal 09/30/16 07:23 Clumped Platelets Not Reportable 09/30/16 07:23 Plt Clumps, EDTA Not Reportable 09/30/16 07:23 Large Platelets Not Reportable 09/30/16 07:23 Giant Platelets Not Reportable 09/30/16 07:23 Platelet Satelliting Not Reportable 09/30/16 07:23 Plt Morphology Comment Not Reportable 09/30/16 07:23 RBC Morphology Not Reportable 09/30/16 07:23 Dimorphic RBCs Not Reportable 09/30/16 07:23 Polychromasia Few 09/30/16 07:23 Hypochromasia Not Reportable 09/30/16 07:23 Poikilocytosis Not Reportable 09/30/16 07:23 Anisocytosis Few 09/30/16 07:23 Microcytosis Not Reportable 09/30/16 07:23 Macrocytosis Not Reportable 09/30/16 07:23 Spherocytes Not Reportable 09/30/16 07:23 Pappenheimer Bodies Not Reportable 09/30/16 07:23 Sickle Cells Not Reportable 09/30/16 07:23 Target Cells Not Reportable 09/30/16 07:23 Tear Drop Cells Not Reportable 09/30/16 07:23 Ovalocytes Few 09/30/16 07:23 Helmet Cells Not Reportable 09/30/16 07:23 Cadena-Circle Bodies Not Reportable 09/30/16 07:23 [place] Rings Not Reportable 09/30/16 07:23 Brian Cells Not Reportable 09/30/16 07:23 Bite Cells Not Reportable 09/30/16 07:23 Crenated Cell Not Reportable 09/30/16 07:23 Elliptocytes Not Reportable 09/30/16 07:23 Acanthocytes (Spur) Not Reportable 09/30/16 07:23 Rouleaux Not Reportable 09/30/16 07:23 Hemoglobin C Crystals Not Reportable 09/30/16 07:23 Schistocytes Not Reportable 09/30/16 07:23 Malaria parasites Not Reportable 09/30/16 07:23 Tristen Bodies Not Reportable 09/30/16 07:23 Hem Pathologist Commnt No 09/30/16 07:23 Sodium 138 mmol/L (137-145) 10/01/16 10:00 Potassium 4.2 mmol/L (3.6-5.0) 10/01/16 10:00 Chloride 100.9 mmol/L (98-107) 10/01/16 10:00 Carbon Dioxide 20 mmol/L (22-30) L 10/01/16 10:00 Anion Gap 21 mmol/L 10/01/16 10:00 BUN 3 mg/dL (9-20) L 10/01/16 10:00 Creatinine 0.4 mg/dL (0.8-1.5) L 10/01/16 10:00 Estimated GFR > 60 ml/min 10/01/16 10:00 BUN/Creatinine Ratio 7.50 % 10/01/16 10:00 Glucose 78 mg/dL (75-100) 10/01/16 10:00 Calcium 8.2 mg/dL (8.4-10.2) L 10/01/16 10:00 Total Bilirubin 0.40 mg/dL (0.1-1.2) 10/01/16 10:00 AST 86 units/L (5-40) H 10/01/16 10:00 ALT 33 units/L (7-56) 10/01/16 10:00 Alkaline Phosphatase 203 units/L (35-129) H 10/01/16 10:00 Total Protein 5.6 g/dL (6.3-8.2) L 10/01/16 10:00 Albumin 2.8 g/dL (3.9-5) L 10/01/16 10:00 Albumin/Globulin Ratio 1.0 % 10/01/16 10:00 Amylase 110 units/L (27-131) 09/30/16 07:23 Lipase 179 units/L (13-60) H 09/30/16 07:23 TSH 1.600 mlU/mL (0.270-4.200) 09/30/16 07:23 Urine Color Yellow (Yellow) 09/29/16 13:10 Urine Turbidity Clear (Clear) 09/29/16 13:10 Urine pH 6.0 (5.0-7.0) 09/29/16 13:10 Ur Specific [place] 1.021 (1.003-1.030) 09/29/16 13:10 Urine Protein 30 mg/dl mg/dL (Negative) 09/29/16 13:10 Urine Glucose (UA) Neg mg/dL (Negative) 09/29/16 13:10 Urine Ketones 80 mg/dL (Negative) 09/29/16 13:10 Urine Blood Neg (Negative) 09/29/16 13:10 Urine Nitrite Neg (Negative) 09/29/16 13:10 Urine Bilirubin Neg (Negative) 09/29/16 13:10 Urine Urobilinogen < 2.0 mg/dL (<2.0) 09/29/16 13:10 Ur Leukocyte Esterase Neg (Negative) 09/29/16 13:10 Urine WBC (Auto) 3.0 /HPF (0.0-6.0) 09/29/16 13:10 Urine RBC (Auto) 6.0 /HPF (0.0-6.0) 09/29/16 13:10 Urine Mucus 1+ /HPF 09/29/16 13:10 Urine Osmolality 656 Mosm/kg 09/30/16 10:30 Urine Creatinine 114.9 mg/dL (0.1-20.0) H 09/30/16 10:30 Urine Sodium 177 mEq/L 09/30/16 10:30 Fraction Sodium Excret 0.0 09/30/16 10:30
[2016-10-01] MEDS: BACTRIM DS PO SCH (16:49)
--- NOTE | 2016-10-01 18:05 | Progress Note ---
Assessment and Plan Pt feeling much better. no compl. sitting up talking on phone. marcella cl liq diet Abd soft, non tender. ID & Pulm eval's appreciated. clinically improving continue present care Selected Entries 10/01/16 10/01/16 08:15 11:32 Temperature 97.8 F Pulse Rate [ 107 H Anterior Bilateral Throughout] Respiratory 20 Rate [Anterior Bilateral Throughout] Laboratory Tests 10/01/16 10:00 WBC 1.7 L* Hgb 12.7 Hct 38.4 Objective Vital Signs - 12hr 10/01/16 10/01/16 10/01/16 08:15 11:21 11:32 Temperature 97.8 F Pulse Rate [ 108 H 107 H Anterior Bilateral Throughout] Pulse Rate [ 100 H Apical] Pulse Rate [ 107 H Posterior Bilateral Throughout] Respiratory 14 Rate Respiratory 18 20 Rate [Anterior Bilateral Throughout] Respiratory 20 Rate [Posterior Bilateral Throughout] Blood Pressure 92/54 [Left Arm] O2 Sat by Pulse 96 Oximetry - Labs 10/01/16 10:00 10/01/16 10:00 Diabetes panel 10/01/16 Range/Units 10:00 Sodium 138 (137-145) mmol/L Potassium 4.2 (3.6-5.0) mmol/L Chloride 100.9 (98-107) mmol/L Carbon Dioxide 20 L (22-30) mmol/L BUN 3 L (9-20) mg/dL Creatinine 0.4 L (0.8-1.5) mg/dL Glucose 78 (75-100) mg/dL Calcium 8.2 L (8.4-10.2) mg/dL AST 86 H (5-40) units/L ALT 33 (7-56) units/L Alkaline Phosphatase 203 H (35-129) units/L Total Protein 5.6 L (6.3-8.2) g/dL Albumin 2.8 L (3.9-5) g/dL Calcium panel 10/01/16 Range/Units 10:00 Calcium 8.2 L (8.4-10.2) mg/dL Albumin 2.8 L (3.9-5) g/dL Pituitary panel 10/01/16 Range/Units 10:00 Sodium 138 (137-145) mmol/L Potassium 4.2 (3.6-5.0) mmol/L Chloride 100.9 (98-107) mmol/L Carbon Dioxide 20 L (22-30) mmol/L BUN 3 L (9-20) mg/dL Creatinine 0.4 L (0.8-1.5) mg/dL Glucose 78 (75-100) mg/dL Calcium 8.2 L (8.4-10.2) mg/dL Adrenal panel 10/01/16 Range/Units 10:00 Sodium 138 (137-145) mmol/L Potassium 4.2 (3.6-5.0) mmol/L Chloride 100.9 (98-107) mmol/L Carbon Dioxide 20 L (22-30) mmol/L BUN 3 L (9-20) mg/dL Creatinine 0.4 L (0.8-1.5) mg/dL Glucose 78 (75-100) mg/dL Calcium 8.2 L (8.4-10.2) mg/dL Total Bilirubin 0.40 (0.1-1.2) mg/dL AST 86 H (5-40) units/L ALT 33 (7-56) units/L Alkaline Phosphatase 203 H (35-129) units/L Total Protein 5.6 L (6.3-8.2) g/dL Albumin 2.8 L (3.9-5) g/dL
[2016-10-01] MEDS: HYTONE CR TP SCH (18:29)
[2016-10-02] MEDS: HYTONE CR TP SCH (04:35)
[2016-10-02 08:03] LABS: Hematocrit 38.3 % (35.5-45.6); Hemoglobin 12.8 gm/dl (11.8-15.2); Mean Corpuscular HGB Conc 34 % (32-34); Mean Corpuscular Hemoglobin 27 pg (28-32); Mean Corpuscular Volume 81 fl (84-94); Platelet Count 142 K/mm3 (140-440); Red Blood Count 4.73 M/mm3 (3.65-5.03); Red Cell Distribution Width 16.6 % (13.2-15.2)
[2016-10-02 08:10] LABS: White Blood Count 1.9 K/mm3 (4.5-11.0)
[2016-10-02 08:16] LABS: Anion Gap 19 mmol/L; Blood Urea Nitrogen 4 mg/dL (9-20); Calcium 8.4 mg/dL (8.4-10.2); Carbon Dioxide 21 mmol/L (22-30); Chloride 99.3 mmol/L (98-107); Glucose 79 mg/dL (75-100); Potassium 3.6 mmol/L (3.6-5.0); Sodium 136 mmol/L (137-145)
[2016-10-02] MEDS: PULMICORT IH SCH (08:22)
[2016-10-02] MEDS: BROVANA NEBU IH SCH (08:22)
[2016-10-02 09:56] LABS: Anisocytosis Few; Basophils % (Manual) 0 % (0.0-1.8); Blastocytes % (Manual) 0 %; Diff Status Complete; Poikilocytosis Few
[2016-10-02 10:38] VITALS: BP 93/45
--- NOTE | 2016-10-02 11:32 | Discharge Summary ---
Providers - Providers Date of Admission: 09/29/16 16:43 Date of discharge: 10/02/16 Attending physician: JOLENE PEREZ MD 09/29/16 16:47 Consult to Physician [CONS] Routine Consulting Provider: RUBI APARICIO Reason For Exam: acute cholecystitis Place consult to:: Dr. Aj Notified:: please call 09/29/16 21:18 Consult to Physician [CONS] Routine Consulting Provider: MONET HAYES Reason For Exam: HIV Place consult to:: Notified:: Was contact made?: Yes If yes, spoke with:: Time called:: 12:40 Comment:: SPOKE TO DR PATTEN 10/01/16 09/30/16 12:29 Consult to Physician [CONS] Routine Consulting Provider: JUNIOR KIM Reason For Exam: r/o pneumonia Place consult to:: DR. ANNA Notified:: DR. ANNA Phone number called:: INHOUSE Was contact made?: Yes If yes, spoke with:: DR. ANNA Time called:: 09:02 Comment:: RICHARD NOTIFIED 10/01/16 14:30 Consult to Case Management [CONS] Routine Services Needed at Discharge: Cost Manager Notified:: COPY GIVEN TO Additional Physician Instructions: Housing, transportation to [facility] for appointments 10/01/16 15:31 Consult to Dietitian/Nutrition [CONS] Routine Physician Instructions: Reason For Exam: Reason for Consult: Malnutrition Primary care physician: [employer] Hospitalization Reason for admission: Acute Cholecystitis, AIDS Condition: Stable Hospital course: 31-year-old male who presents emergency Department with complaints history of upper abdominal pain, nausea and vomiting and diarrhea for the past 1 week. He also states that he has not been feeling well for the past 2 months and has had a weight loss of about 60 pounds in the past 6 months. He has a history of asthma and HIV. The patient says he has been off of his HIV medications and states that the medications have been impounded by his aunt. He has not taken anything for pain or his symptoms prior to presentation. Upon further workup patient was diagnosed with acute cholecystitis and right lower lobe pneumonitis and he is being admitted for further management. Patient was admitted to the floor and he was tested his IV antibiotics, bowel rest and surgery was consulted because the patient refused cholecystectomy. Subsequently the patient is getting better and able to tolerate diet. Patient has history of HIV and noncompliant with his medications. ID was consulted and recommended to treat him on PCP prophylaxis, recommended to follow-up with [facility] to restart his HIV medications. Patient is discharged to [facility] with by mouth antibiotics, PCP prophylaxis and advised follow-up with [facility]. Case management help him to get his medications and transportation issues. Questions and concerns were answered at bedside. Disposition: DC-01 TO HOME OR SELFCARE Time spent for discharge: 31 minutes - Discharge Diagnoses (1) AIDS (acquired immunodeficiency syndrome), CD4 <=200 Status: Acute (2) Acute cholecystitis Status: Acute (3) Leukopenia Status: Acute Qualifiers: Leukopenia type: L Neutropenia type: N (4) Right lower lobe pneumonia Status: Acute Qualifiers: Pneumonia type: P Aspiration pneumonia type: A (5) Seborrhea Status: Acute Core Measure Documentation - Palliative Care Palliative Care/ Comfort Measures: Not Applicable - Core Measures Any of the following diagnoses?: none Exam - Physical Exam Narrative exam: Not in cardiopulmonary distress. The patient is emaciated. Vital signs as documented. Head exam is unremarkable. No scleral icterus . Neck is without jugular venous distension, thyromegaly, or carotid bruits. Lungs are clear to auscultation. Cardiac exam reveals regular rate and Rhythm. First and second heart sounds normal. No murmurs, rubs or gallops. Abdominal exam reveals normal bowel sounds, no masses, no organomegaly and no aortic enlargement. Extremities are nonedematous and both femoral and pedal pulses are normal. PEDIATRIC ANESTHESIOLOGIST: Alert and oriented 3. No focal weakness. - Constitutional Vitals: Temp Pulse Resp BP Pulse Ox 97.5 F L 98 H 18 93/45 100 10/02/16 07:55 10/02/16 09:00 10/02/16 09:00 10/02/16 07:55 10/02/16 07:55 Plan Activity: no restrictions Weight Bearing Status: Full Weight Bearing Diet: regular Follow up with: PRIMARY CARE, [Primary Care Provider] - 3-5 Days Prescriptions: Hydrocortisone 2.5% [Hytone 2.5% CREAM] 1 applic TP Q12H #1 tube Levofloxacin [Levaquin TAB] 500 mg PO QDAY #7 tablet Sulfamethoxazole/Trimethoprim [Bactrim DS TAB] 1 each PO DAILY #30 tablet
--- NOTE | 2016-10-02 12:34 | Progress Note ---
Assessment and Plan Cholecistitis.refused surgery Pneumonia.completing ABX HIV infection.need OPD f/u, combination TX,TMP/SMX prophylaxis if CD 3 to low Asthma.controlled Rec Recommend to complete 7 days levofloxacin for pneumonia component NICOL prn, neb or inhaler OPD ID f/u for HIV at [facility]. Non compliant with TX Will sign off Subjective Date of service: 10/02/16 Interval history: No cough , SOB or wheezing Objective Vital Signs - 12hr 10/02/16 10/02/16 10/02/16 07:55 08:50 09:00 Temperature 97.5 F L Pulse Rate [ 113 H Left Radial] Pulse Rate [ 99 H 98 H Posterior Bilateral Throughout] Respiratory 20 Rate Respiratory 18 18 Rate [Posterior Bilateral Throughout] Blood Pressure 93/45 [Left Arm] O2 Sat by Pulse 100 Oximetry Constitutional: no acute distress, alert Eyes: non-icteric ENT: oropharynx moist Neck: supple Effort: normal Ascultation: Bilateral: clear Percussion: Bilateral: not dull Cardiovascular: regular rate and rhythm Gastrointestinal: normoactive bowel sounds, soft, non-tender, non-distended Extremities: no cyanosis Neurologic: normal mental status, non-focal exam, pupils equal and round Psychiatric: mood appropriate, affect normal CBC and BMP: 10/02/16 07:34 10/02/16 07:34 Abnormal lab findings: Abnormal Labs 09/30/16 09/30/16 09/30/16 07:23 07:23 10:30 WBC 1.9 L* MCV 82 L MCH 27 L RDW 16.7 H Craven % (Auto) 11.5 H Seg Neuts % (Manual) 77.0 H Lymphocytes % (Manual) 13.0 L Monocytes % (Manual) Seg Neutrophils # 1.1 L Seg Neutrophils # Man 1.5 L Lymphocytes # (Manual) 0.2 L Sodium 133 L Carbon Dioxide 20 L BUN 6 L Creatinine 0.4 L Glucose 73 L Calcium 7.8 L AST Alkaline Phosphatase Total Protein Albumin Lipase 179 H Urine Creatinine 114.9 H 10/01/16 10/01/16 10/02/16 10:00 10:00 07:34 WBC 1.7 L* 1.9 L* MCV 82 L 81 L MCH 27 L 27 L RDW 17.4 H 16.6 H Craven % (Auto) Seg Neuts % (Manual) Lymphocytes % (Manual) Monocytes % (Manual) 16.0 H Seg Neutrophils # Seg Neutrophils # Man 1.1 L Lymphocytes # (Manual) 0.3 L Sodium Carbon Dioxide 20 L BUN 3 L Creatinine 0.4 L Glucose Calcium 8.2 L AST 86 H Alkaline Phosphatase 203 H Total Protein 5.6 L Albumin 2.8 L Lipase Urine Creatinine 10/02/16 07:34 WBC MCV MCH RDW Craven % (Auto) Seg Neuts % (Manual) Lymphocytes % (Manual) Monocytes % (Manual) Seg Neutrophils # Seg Neutrophils # Man Lymphocytes # (Manual) Sodium 136 L Carbon Dioxide 21 L BUN 4 L Creatinine 0.4 L Glucose Calcium AST Alkaline Phosphatase Total Protein Albumin Lipase Urine Creatinine
[2016-10-02] MEDS: BACTRIM DS PO SCH (12:37)
[2016-10-02] MEDS: LEVAQUIN 750MG/150ML 750 MG/150 ML BAG IV SCH (13:48)
[2016-10-02] MEDS ORDERED: GENVOYA PO SCH (14:45)
--- NOTE | 2016-10-02 16:24 | Progress Note ---
Assessment and Plan - Patient Problems (1) AIDS (acquired immunodeficiency syndrome), CD4 <=200 Current Visit: Yes Status: Acute Plan to address problem: 1. Cryptococcal antigen is negative. 2. Will resume Genvoya. Patient should follow-up at [facility] after discharge to continue ARVs. 3. Continue Bactrim for PCP prophylaxis. 4. MAC prophylaxis held pending results of AFB blood culture/ follow-up of previous lab results at [facility]. (2) Seborrhea Current Visit: Yes Status: Acute Plan to address problem: Continue topical hydrocortisone. (3) Acute cholecystitis Current Visit: Yes Status: Acute Plan to address problem: Patient has refused surgery. Subjective Date of service: 10/02/16 Interval history: Hypotensive earlier today. Patient has been NPO. Objective - Constitutional Vitals: Vital Signs Temp Pulse Resp BP Pulse Ox 97.5 F L 98 H 18 93/45 100 10/02/16 07:55 10/02/16 09:00 10/02/16 09:00 10/02/16 07:55 10/02/16 07:55 Temperature -Last 24 Hours Temperature 97.5 F Temperature 97.8 F - Labs CBC & Chem 7: 10/02/16 07:34 10/02/16 07:34 Labs: Abnormal lab results 10/02/16 10/02/16 Range/Units 07:34 07:34 WBC 1.9 L* (4.5-11.0) K/mm3 MCV 81 L (84-94) fl MCH 27 L (28-32) pg RDW 16.6 H (13.2-15.2) % Monocytes % (Manual) 16.0 H (0.0-7.3) % Seg Neutrophils # Man 1.1 L (1.8-7.7) K/mm3 Lymphocytes # (Manual) 0.3 L (1.2-5.4) K/mm3 Sodium 136 L (137-145) mmol/L Carbon Dioxide 21 L (22-30) mmol/L BUN 4 L (9-20) mg/dL Creatinine 0.4 L (0.8-1.5) mg/dL Microbiology 09/29/16 17:23 Peripheral/Venous Blood Culture - Preliminary NO GROWTH AFTER 48 HOURS 09/29/16 16:13 Peripheral/Venous Blood Culture - Preliminary NO GROWTH AFTER 48 HOURS 10/01/16 07:23 Serum Cryptococcal Antigen - Final HBV surface antigen - NEGATIVE HCV Antibody - NEGATIVE
== END 2016-10-02 13:00 | disposition home or self-care (01) | DRG 444 ==
LOC: ED 11:37 → 3A 16:43
PROVIDERS: ADMIT Internal Medicine; ATTEND Internal Medicine
DX: K81.9 Cholecystitis, unspecified (principal); B20 Human immunodeficiency virus [HIV] disease; J18.9 Pneumonia, unspecified organism; E46 Unspecified protein-calorie malnutrition; Z68.1 Body mass index [BMI] 19.9 or less, adult; E87.1 Hypo-osmolality and hyponatremia; J45.909 Unspecified asthma, uncomplicated; Z72.89 Other problems related to lifestyle; D72.819 Decreased white blood cell count, unspecified; Z88.8 Allergy status to other drugs, medicaments and biological substances; Z80.1 Family history of malignant neoplasm of trachea, bronchus and lung; Z82.49 Family history of ischemic heart disease and other diseases of the circulatory system; L21.9 Seborrheic dermatitis, unspecified; Z91.19 Patient's noncompliance with other medical treatment and regimen; Z53.29 Procedure and treatment not carried out because of patient's decision for other reasons
CPT/HCPCS: 36415; 70450; 71020; 74020; 74176; 76705; 80048; 80053; 81001; 82024; 82150; 82570; 83690; 83935; 84443; 85007; 85025; 85027; 86403; 86705; 86706; 86709; 86803; 87040; 94640; 96361; 96365; 96366; 96375; A6250; J1956; J2270; J7030; J7042